=== PATIENT | male | born 1955 | race Caucasian/White ===

== ENCOUNTER 2019-05-13 14:05 | Inpatient (IN) | payer BC ==
[2019-05-13 14:20] VITALS: BMI 36.5
--- NOTE | 2019-05-13 14:24 | PDOC ---
History of Present Illness - General Chief Complaint: Altered Mental Status Stated Complaint: EVALUATION Time Seen by Provider: 05/13/19 14:23 History Source: Patient, Family Exam Limitations: Clinical Condition - History of Present Illness Initial Comments: 63 year old male with PMH chronic right knee pain, chronic right ankle pain presented to ED with son for disorientation since today. Son at bedside reported last night he spoke with his father on the phone, he was complaining of his right sided chronic lower extremity pain, but seemed himself. He reported this AM when he talked to him on the phone he required a lot of time for word finding and expressing himself, which is not his normal. He reported a friend of the patient also called the Son to report he was off today. Pt reported he believes his mental status is at baseline. ROS General: denied fever, chills, generalized weakness. HEENT: denied sore throat, rhinorrhea, ear pain. Cardiovascular: denied chest pain, palpitations, syncope, diaphoresis. Respiratory: denied shortness of breath, cough, sputum production, hemoptysis. Gastrointestinal: denied abdominal pain, nausea, vomiting, diarrhea, constipation, blood in stool. Genitourinary: denied dysuria, increased urinary frequency, hematuria, urinary incontinence, flank pain. Back: denied back pain. Musculoskeletal: admitted to right knee pain, right ankle pain. Neurological: admitted to AMS. denied headache, dizziness, numbness, tingling, weakness. Integumentary: denied rash, laceration, abrasion. Hematologic/Lymphatic: denied bruising or bleeding. PE Constitutional: Well-nourished, Well-developed, appearing stated age. HEENT: head is normocephalic, atraumatic. EOMI. PERRLA. Neck: supple. Full ROM. Cardiovascular: regular heart rhythm. Normal S1 and S2. no murmurs. no pericardial friction rub. Respiratory: clear to auscultation bilaterally. no crackles, rhonchi or wheezing. no stridor. Gastrointestinal: soft, flat, nontender. normal bowel sounds. no rebound, guarding, or masses. Extremities: peripheral pulses intact and equal. no lower extremity edema noted. Neurological: CN2-12 intact. 5/5 strength all extremities. normal ankle plantar flexion. full sensation all extremities and bilateral face. romberg negative. no ataxia. gait not observed. Attends bilaterally. Follows commands. Answers questions appropriately with repeated stimulation. Normal speech articulation. Unable to guess all objects on NIH stroke scale. Unable to tell situation on NIH stroke scale "theyre all in a mess". Will forget what he was asked. Psych: awake, alert, oriented x3. follows commands. answers questions appropriately. NIH Stroke Scale - Last Known Well Date/Time & Onset Date Last Known Well: 05/12/19 Time Last Known Well: 20:00 - Initial Evaluation Level of consciousness: Alert Ask patient the month and their age: Answers both correctly Ask patient to open & close eyes; make fist and let go: Obeys both correctly Best gaze (horizontal eye movement): Normal Visual field testing: No visual field loss Motor Function: Left Arm: Normal Motor Function: Left Leg: Normal (extends leg 30 degrees for 5 seconds without drift) Motor Function: Right Leg: Normal (extends leg 30 degrees for 5 seconds without drift) Limb Ataxia: No ataxia Sensory(Use pinprick test arms,legs,trunk,face/side to side): Normal Best language (Describe picture, name items, read sentences): Mild to moderate aphasia Dysarthria (read several words): Normal articulation Extinction and Inattention: No abnormality Past History - Past Medical History Allergies/Adverse Reactions: Allergies Allergy/AdvReac Type Severity Reaction Status Date / Time No Known Allergies Allergy Verified 05/13/19 14:20 Other medical history: DENIES - Immunization History Immunization Up to Date: Yes - Psycho Social/Smoking Cessation Hx Smoking History: Never smoked Have you smoked in the past 12 months: No Information on smoking cessation initiated: No Hx Alcohol Use: No Drug/Substance Use Hx: No *Physical Exam - Vital Signs Last Vital Signs Temp Pulse Resp BP Pulse Ox 98.0 F 92 H 21 H 128/84 96 05/13/19 14:12 05/13/19 14:12 05/13/19 14:12 05/13/19 14:12 05/13/19 14:12 ED Treatment Course - LABORATORY CBC & Chemistry Diagram: 05/13/19 14:56 05/13/19 14:56 Medical Decision Making - Medical Decision Making 63 year old male with above PMH presented to ED for disorientation, last known well before he went to bed last night, self reported 8PM. NIH stroke scale above. No indication for tPA - Sx present since last night, mild. Initial Vital Signs Temp Pulse Resp BP Pulse Ox 98.0 F 92 H 21 H 128/84 96 05/13/19 14:12 05/13/19 14:12 05/13/19 14:12 05/13/19 14:12 05/13/19 14:12 Afebrile. No tachycardia. No tachypnea. No hypotension. No hypoxia on room air. EKG performed at 1447: rate 87, regular rhythm, normal axis, normal intervals, nonspecific ST changes. 05/13/19 16:20 Laboratory Last Values WBC 12.1 K/mm3 (4.0-10.0) H 05/13/19 14:56 RBC 5.54 M/mm3 (4.00-5.60) 05/13/19 14:56 Hgb 15.2 GM/dL (11.7-16.9) 05/13/19 14:56 Hct 46.4 % (35.4-49) 05/13/19 14:56 MCV 83.8 fl (80-96) 05/13/19 14:56 MCH 27.5 pg (25.7-33.7) 05/13/19 14:56 MCHC 32.8 g/dl (32.0-35.9) 05/13/19 14:56 RDW 14.8 % (11.9-15.9) 05/13/19 14:56 Plt Count 254 K/MM3 (134-434) 05/13/19 14:56 MPV 8.9 fl (7.5-11.1) 05/13/19 14:56 Absolute Neuts (auto) 8.9 K/mm3 (1.5-8.0) H 05/13/19 14:56 Neutrophils % 74.2 % (42.8-82.8) 05/13/19 14:56 Lymphocytes % 16.3 % (8-40) 05/13/19 14:56 Monocytes % 8.1 % (3.8-10.2) 05/13/19 14:56 Eosinophils % 0.8 % (0-4.5) 05/13/19 14:56 Basophils % 0.6 % (0-2.0) 05/13/19 14:56 Nucleated RBC % 0 % (0-0) 05/13/19 14:56 PT with INR 14.80 SEC (9.7-13.0) H 05/13/19 14:56 INR 1.25 (0.83-1.09) H 05/13/19 14:56 PTT (Actin FS) 37.8 SECONDS (25.2-36.5) H 05/13/19 14:56 Sodium 142 mmol/L (136-145) 05/13/19 14:56 Potassium 3.7 mmol/L (3.5-5.1) 05/13/19 14:56 Chloride 106 mmol/L (98-107) 05/13/19 14:56 Carbon Dioxide 28 mmol/L (21-32) 05/13/19 14:56 Anion Gap 8 MMOL/L (8-16) 05/13/19 14:56 BUN 24.6 mg/dL (7-18) H 05/13/19 14:56 Creatinine 0.8 mg/dL (0.55-1.3) 05/13/19 14:56 Est GFR (CKD-EPI)AfAm 111.74 05/13/19 14:56 Est GFR (CKD-EPI)NonAf 96.41 05/13/19 14:56 Random Glucose 104 mg/dL (74-106) 05/13/19 14:56 Calcium 9.4 mg/dL (8.5-10.1) 05/13/19 14:56 Total Bilirubin 1.1 mg/dL (0.2-1) H 05/13/19 14:56 AST 23 U/L (15-37) 05/13/19 14:56 ALT 28 U/L (13-61) 05/13/19 14:56 Alkaline Phosphatase 96 U/L (45-117) 05/13/19 14:56 Creatine Kinase 182 U/L (26-308) 05/13/19 14:56 Creatine Kinase Index No Result Required. 05/13/19 14:56 CK-MB (CK-2) < 1.0 ng/mL (0.5-3.6) 05/13/19 14:56 Troponin I < 0.02 ng/ml (0.00-0.05) 05/13/19 14:56 Total Protein 7.9 g/dl (6.4-8.2) 05/13/19 14:56 Albumin 3.6 g/dl (3.4-5.0) 05/13/19 14:56 05/13/19 16:22 CT head report: Name: [facility] Phys: Elida Ortiz RESIDENT : 1955 Age: 63 Sex: M [facility] Acct: [id number] Loc: [address] Exam Date: 05/13/19 Status: [place] [id number] Unit Number: [id number] EXAM#: TYPE/EXAM: RESULT: [id number] CT/HEAD CT (STROKE) Cranial CT without contrast Clinical information: disorientation since yesterday Multiplanar imaging was performed. Intravenous contrast was not administered. An approximate 5 cm focal mass lesion is seen within the left medial frontal lobe which also appears to cross the midline along the genu of the corpus callosum. There is marked perilesional edema. Moderate rightward midline displacement is seen in the frontal region. There is no extra- axial fluid collection. No gross infarct is seen. There is no obstructive hydrocephalus. The calvarium appears intact. Impression: A left medial frontal mass lesion is seen with involvement of the corpus callosum suggestive of neoplastic disease. Marked perilesional edema is noted. Correlation with contrast-enhanced MRI or CT is suggested. Reported By: Jon Lewis MD 05/13/19 1619 Frontal brain mass indentified on CT with surrounding edema, likely the cause of AMS. Pt and family informed of results. Medications ordered: Decadron 10 mg IV once Will page neuro Pt to be admitted for intracranial mass with surrounding edema producing AMS. Right foot/ankle XR read pending Right knee XR read pending Chest XR read pending Neuro [employer] paged. PCP Matt De Dios --> Parvez paged. 05/13/19 16:49 Pt refused Decadron, then self removed his IV, and demanded to leave the department. Family at bedside prefers pt to stay. Pt encouraged to stay, advised leaving the ED could result in progressive brain swelling and might cause serious permanent medical consequences including . Pt does not have full capacity to understand the weight of his medical condition at this time. Son requested additional time to speak with patient to try to convince him. 05/13/19 17:01 CXR report: Name: [facility] Phys: Elida Ortiz RESIDENT : 1955 Age: 63 Sex: M [facility] Acct: [id number] Loc: [facility] [address] [place] [address] Exam Date: 05/13/19 Status: [place] [id number] Unit Number: [id number] EXAM#: TYPE/EXAM: RESULT: [id number] RAD/CHEST - PA Chest: Brain mass. Altered mental status 2 views of the chest and abdomen submitted. There are clear lungs, slightly prominent mediastinum but no sign of infiltrate or failure. The angles are sharp and the soft tissues are intact. There is mamillation of the right hemidiaphragm. Significant arthritic changes are not seen. Impression: No acute chest pathology. Reported By: Ike Rodriguez MD 05/13/19 1653 Right knee XR report: Name: [facility] Phys: Elida Ortiz RESIDENT : 1955 Age: 63 Sex: M [facility] Acct: [id number] Loc: [facility] [address] [place] [address] Exam Date: 05/13/19 Status: [place] [id number] Unit Number: [id number] EXAM#: TYPE/EXAM: RESULT: [id number] RAD/KNEE 4 POS-RIGHT Right knee: Pain. No trauma. 3 views of the right knee reveal a joint effusion, fabella, arthritic changes but no sign of fracture or subluxation and no sign of blastic or lytic findings. If symptoms persist, further imaging may be of help. Impression: Arthritic changes. Joint effusion. No acute fracture. Reported By: Ike Rodriguez MD 05/13/19 1651 Right ankle/foot XR report: Name: [facility] Phys: Elida Ortiz RESIDENT : 1955 Age: 63 Sex: M [facility] Acct: [id number] Loc: [facility] [address] [place] [address] Exam Date: 05/13/19 Status: [place] [address] Unit Number: [id number] EXAM#: TYPE/EXAM: RESULT: [id number] RAD/ANKLE FOOT-RIGHT* Right foot and ankle: Painful fifth metatarsal. Swelling. 3 views of the right ankle reveal an intact mortise, calcaneal spurring, other tarsal bone arthritic changes but no sign of fracture or subluxation and no sign of blastic or lytic findings. There is some swelling. 3 views of the right foot reveal no sign of fracture or subluxation and no sign of blastic or lytic changes. There are arthritic changes seen in the toes and bunion formation by the first MTP joint. The fifth metatarsal is intact. If symptoms persist, further imaging may be of help. Impression: Arthritic changes. Some swelling. No acute fracture. Reported By: Ike Rodriguez MD 05/13/19 1651 05/13/19 17:07 CTA head report: Name: [facility] Phys: Giuliana Neumann MD : 1955 Age: 63 Sex: M [facility] Acct: [id number] Loc: [address] Exam Date: 05/13/19 Status: [facility] [place] [address] Unit Number: [id number] EXAM#: TYPE/EXAM: RESULT: [id number] CT/BRAIN CTA (STROKE) Brain CT angiography Clinical information: disorientation Multiplanar imaging was performed following the intravenous bolus administration of nonionic contrast. Individual partition images as well as projection and reformatted images are reviewed. An approxi mately 4.7 x 2.7 cm solitary left frontal lobe mass lesion with irregular peripheral enhancement is seen medially extending beneath the inferior edge of the cerebral falx. There is marked perilesional edema with resultant ventricular deformity and moderate focal midline displacement. Extrinsic indentation is seen upon the adjacent vasculature. There is no CT evidence of large vessel stenosis or occlusion. No discrete aneurysm is seen. Impression: Large solitary left medial frontal lobe mass lesion with marked perilesional edema probably on the basis of primary neoplastic disease. no CT evidence of large vessel stenosis or occlusion Reported By: Jon Lewis MD 05/13/19 1704 05/13/19 17:[address] Castillo, who will evaluate the patient. 05/13/19 17:[address] Hannon. [address]. Castillo at bedside. Pt will allow Decadron 10 mg IM to be given. 05/13/19 17:54 Dr. Castillo recommended transfer to [facility] for neurosurgical intervention. Accepted by Dr. West, who was spoken to by Dr. Castillo. Dr. Castillo completed transfer consent. 05/13/19 18:07 Dr. Hannon informed of transfer. Admission canceled. 05/13/19 18:16 Pt continuing to refuse medical treatment, agitated, trying to get out of bed, refused IV, refused transfer. Pt does not have the capacity to make his own medical decisions as he is altered right now. Family (, son) at bedside insistent on pt receiving care and being transferred. and son verbally consented to Haldol 5 mg IM and Ativan 1 mg IM to help with agitation. 05/13/19 18:42 Transport present. Pt continuing to refuse IV. 05/13/19 18:55 Pt left department. Discharge - Discharge Information Problems reviewed: Yes Clinical Impression/Diagnosis: Intracranial space-occupying lesion, AMS (altered mental status) Condition: Stable Disposition: TRANSFER ACUTE CARE/OTHER HOSP - Admission Yes - Follow up/Referral - Patient Discharge Instructions - Post Discharge Activity
--- NOTE | 2019-05-13 14:49 | PDOC ---
Attending Attestation - Resident Resident Name: Elida Ortiz - ED Attending Attestation I have performed the following: I have examined & evaluated the patient, The case was reviewed & discussed with the resident, I agree w/resident's findings & plan, Exceptions are as noted - HPI HPI: 05/13/19 14:43 63yoM pmhx only of chronic pain syndrome presnets w/ acute onset of confusion this morning per son. LKW yesterdya/last night. Son spoke with the pt around 1pm and he was speaking normally, complaining of his chornic severe pain. No fevers, no cp/sob/palps, no known syncope, no known acute trauma. Today, pt with significantly decreased verbosity, not answering questions approrpiately, unable to dress self this morning because unable to compete task. - Physicial Exam PE: 05/13/19 18:06 NAD, well appearing attends to stimuli appropriately becomes perseverative on previous question answer mixes up pronouns, mis-names common objects. CN intact, moving all 4, no pronator drift, no leg drift, giat not tested A&O x 2 -- self and place, date incorrect. - Medical Decision Making 05/13/19 18:08 63yoM w/ acute onset of dysnomia, LKW last night. Concern for stroke. - labs - ekg - STAT HCT/CTA - cxr - ua - cardaic monitor - ivf - neuro consult. - dispo per results.
[2019-05-13 15:16] LABS: BASO % 0.6 % (0-2.0); EOS % 0.8 % (0-4.5); HEMATOCRIT 46.4 % (35.4-49); HEMOGLOBIN 15.2 GM/dL (11.7-16.9); LYMPH % 16.3 % (8-40); MCH 27.5 pg (25.7-33.7); MCHC 32.8 g/dl (32.0-35.9); MEAN CELL VOLUME 83.8 fl (80-96); MEAN PLT VOLUME 8.9 fl (7.5-11.1); MONO % 8.1 % (3.8-10.2); NEUT % 74.2 % (42.8-82.8); PLATELET COUNT 254 K/MM3 (134-434); RBC 5.54 M/mm3 (4.00-5.60); RDW 14.8 % (11.9-15.9); WHITE BLOOD COUNT 12.1 K/mm3 (4.0-10.0)
[2019-05-13 15:24] LABS: INR 1.25 (0.83-1.09); PROTHROMBIN TIME (PATIENT) 14.8 SEC (9.7-13.0)
[2019-05-13 15:27] LABS: ACTIVATED PTT 37.8 SECONDS (25.2-36.5)
[2019-05-13 15:47] LABS: ALBUMIN 3.6 g/dl (3.4-5.0); BILIRUBIN,TOTAL 1.1 mg/dL (0.2-1); BLOOD UREA NITROGEN 24.6 mg/dL (7-18); CALCIUM 9.4 mg/dL (8.5-10.1); CREATININE 0.8 mg/dL (0.55-1.3); POTASSIUM 3.7 mmol/L (3.5-5.1); TOT PROT 7.9 g/dl (6.4-8.2)
[2019-05-13] MEDS ORDERED: DEXAMETHASONE SOD PHOSPHATE 10 MG/1 ML VIAL IVPUSH ONE (16:30)
[2019-05-13] MEDS ORDERED: DEXAMETHASONE SOD PHOSPHATE 10 MG/1 ML VIAL ONE ×2 (16:40→17:32)
[2019-05-13] MEDS ORDERED: DEXAMETHASONE SOD PHOSPHATE 10 MG/1 ML VIAL IM ONE (17:30)
--- NOTE | 2019-05-13 17:52 | CON.NEURO ---
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 No clear history of seizure-like activity no recent travel no head trauma. Patient came into the emergency room with his and his son CAT scan of the head revealed evidence of intra-axial mass. ndependent emergency room patient was not confused but he was agitated and he took the IV off patient received Decadron 10 mg 1 I spoke to the emergency room at [facility] the decision was made to transfer the patient to [facility] neurosurgery. - History Source History Provided By: Patient, Medical Record Limitations to Obtaining History: Clinical Condition - Alcohol/Substance Use Hx Alcohol Use: No - Smoking History Smoking history: Never smoked Have you smoked in the past 12 months: No Home Medications - Allergies Allergies/Adverse Reactions: Allergies Allergy/AdvReac Type Severity Reaction Status Date / Time No Known Allergies Allergy Verified 05/13/19 14:20 Family Medical History Family History: Unremarkable Review of Systems - Review of Systems Constitutional: reports: No Symptoms Eyes: reports: No Symptoms HENT: reports: No Symptoms Neurological: reports: Headache, Incoordination, Numbness Physical Exam-Neuro Vital Signs: Vital Signs Temperature 98.0 F 05/13/19 14:12 Pulse Rate 92 H 05/13/19 14:12 Respiratory Rate 21 H 05/13/19 14:12 Blood Pressure 128/84 05/13/19 14:12 O2 Sat by Pulse Oximetry (%) 96 05/13/19 14:12 Constitutional: Yes: Well Nourished Neck: Yes: WNL Cardiovascular: Yes: WNL Labs: CBC, BMP 05/13/19 14:56 05/13/19 14:56 INR, PTT INR 1.25 (0.83-1.09) H 05/13/19 14:56 - Neuro Exam Level Of Consciousness: Yes: Oriented to Person, Oriented to Place, Oriented to Time Eyes: Yes: PERRLA Speech: WNL Dominant Hand: Right Gag: Present DTR's: 1+ Left Bicep, 1+ Right Bicep, 1+ Right Tricep, 1+ Left Brachioradialis, 1+ Right Brachioradialis Response to light touch: Abnormal Response to pain prick: Abnormal Response to temperature: Abnormal Motor Strength: 3/5: Right Arm, Left Leg, Right Leg, Left Arm Gait: Deferred Imaging - Results Cat Scan: Image Reviewed Problem List - Problems (1) Intracranial space-occupying lesion Code(s): R90.0 - INTCRN SPACE-OCCUPYING LESION FOUND ON DX IMAGING OF CNSL Assessment/Plan 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 Transfer to [facility] neurosurgery. 2. Neuro checks every 1 hour. 3. MRI of the brain with and without contrast. 4. Decadron 6 mg IV every 6 hours. 5. GI prophylaxis. 6. No Keppra. 8. CAT scan of the chest abdomen and pelvis. 9. Coordination with the neurosurgery for brain biopsy Thank you very much for allowing me to be part of this patient's neurological care. James Castillo M.D., MSc [facility] [address] [place] [address] Office
[2019-05-13] MEDS ORDERED: HALOPERIDOL LACTATE 5 MG/ML IM ONE ×2 (18:08→18:13)
[2019-05-13] MEDS ORDERED: HALOPERIDOL LACTATE 5 MG/ML ONE (18:17)
[2019-05-13] MEDS ORDERED: LORazepam 2 MG/ML SDV VIAL ONE (18:18)
[2019-05-13] MEDS ORDERED: ACETAMINOPHEN 500 MG TABLET (FP) PO ONE (18:36)
[2019-05-13] MEDS ORDERED: ACETAMINOPHEN 325 MG TABLET (FP) ONE (18:37)
[2019-05-13 18:55] VITALS: BP 134/76; PULSE 85; TEMP 100.2
--- NOTE | 2019-05-14 14:04 | EKG ---
Test Reason : Blood Pressure : / mmHG Vent. Rate : 087 BPM Atrial Rate : 087 BPM P-R Int : 154 ms QRS Dur : 102 ms QT Int : 360 ms P-R-T Axes : 014 -07 013 degrees QTc Int : 433 ms NORMAL SINUS RHYTHM NORMAL ECG NO PREVIOUS ECGS AVAILABLE Confirmed by ANATOLIY ALMANZAR MD ([id number]) on 05/14/2019 2:03:59 PM Referred By: Confirmed By:ANATOLIY ALMANZAR MD
== END 2019-05-13 20:00 | disposition short-term general hospital (02) | DRG 55 ==
LOC: JER 14:05 → JERBED 16:32
PROVIDERS: ADMIT Internal Medicine; ATTEND Internal Medicine
DX: D33.0 Benign neoplasm of brain, supratentorial (principal); R90.0 Intracranial space-occupying lesion found on diagnostic imaging of central nervous system; R41.82 Altered mental status, unspecified; M25.571 Pain in right ankle and joints of right foot; M17.0 Bilateral primary osteoarthritis of knee; M25.562 Pain in left knee; M25.561 Pain in right knee
CPT/HCPCS: 36415; 70450-TC; 70496-TC; 71045-TC-FY; 73564-TC-RT-FY; 73610-TC-RT-FY; 73630-TC-RT-FY; 80053; 82550; 82553; 84484; 85025; 85610; 85730; 93005; 93010; 99285-25; J1100; Q9967

== ENCOUNTER 2020-04-26 18:07 | Emergency (ER) | payer BC ==
[2020-04-26 18:49] VITALS: TEMP 98.8; BMI 40.3
[2020-04-26 20:31] LABS: INR 2.16 (0.83-1.09)
[2020-04-26 20:34] LABS: ACTIVATED PTT 45.4 SECONDS (25.2-36.5)
[2020-04-26 20:41] LABS: BASO % 3.3 % (0-2.0); EOS % 0.1 % (0-4.5); HEMATOCRIT 39.4 % (35.4-49); LYMPH % 3.5 % (8-40); MCH 26.7 pg (25.7-33.7); MCHC 32.9 g/dl (32.0-35.9); MEAN PLT VOLUME 8.4 fl (7.5-11.1); NEUT % 87.1 % (42.8-82.8); PLATELET COUNT 300 K/MM3 (134-434); RBC 4.86 M/mm3 (4.00-5.60); RDW 18.5 % (11.9-15.9); WHITE BLOOD COUNT 16.2 K/mm3 (4.0-10.0)
[2020-04-26 20:45] LABS: CHLORIDE 95 mmol/L (98-107); SODIUM 132 mmol/L (136-145)
[2020-04-26 20:47] LABS: CALCIUM 8.4 mg/dL (8.5-10.1)
[2020-04-26 20:48] LABS: ALBUMIN 2.3 g/dl (3.4-5.0); ANION GAP 5 MMOL/L (8-16); BLOOD UREA NITROGEN 8.3 mg/dL (7-18); CO2 32 mmol/L (21-32); GLUCOSE,RANDOM 131 mg/dL (74-106); MAGNESIUM 2.1 mg/dL (1.8-2.4)
[2020-04-26 20:51] LABS: CREATININE 0.5 mg/dL (0.55-1.3); SGOT/AST 36 U/L (15-37); SGPT/ALT 18 U/L (13-61)
[2020-04-26 20:53] LABS: BILIRUBIN,TOTAL 0.9 mg/dL (0.2-1); TOT PROT 6.3 g/dl (6.4-8.2)
[2020-04-26 20:54] LABS: ALK PHOS 115 U/L (45-117)
[2020-04-26 21:32] LABS: ANISOCYTOSIS 2+; MACROCYTOSIS 0; OVALOCYTE 1+; PLATELET ESTIMATE NORMAL
[2020-04-26 21:46] LABS: URINE APPEARANCE CLEAR; URINE BILIRUBIN 1+ (NEGATIVE); URINE COLOR DK YELLOW; URINE GLUCOSE (UA) NEGATIVE (NEGATIVE); URINE KETONE TRACE (NEGATIVE); URINE LEUK ESTERASE NEGATIVE (NEGATIVE); URINE NITRITE NEGATIVE (NEGATIVE); URINE PROTEIN TRACE (NEGATIVE); URINE UROBILINOGEN >=8.0 E.U./dl mg/dL (0.2-1.0)
[2020-04-26 21:56] VITALS: BP 125/79; PULSE 106
[2020-04-26] MEDS ORDERED: levETIRAcetam 500 MG TABLET (FP) PO ONE ×2 (23:55→23:56)
[2020-04-26] MEDS ORDERED: APIXABAN 5 MG TABLET PO ONE (23:55)
[2020-04-26] MEDS ORDERED: APIXABAN 5 MG TABLET ONE (23:56)
== END 2020-04-27 04:21 | disposition home or self-care (01) ==
LOC: JER 18:07
DX: R60.9 Edema, unspecified (principal)
CPT/HCPCS: 36415; 71045-TC-FY; 80053; 81003; 82550; 82553; 83735; 83880; 84484; 85025; 85379; 85610; 85730; 86850; 86900; 86901; 87086; 93005; 93010; 93970-TC; 99285-25